=== PATIENT | male | born 1985 | race Caucasian/White ===

== ENCOUNTER 2023-01-30 09:34 | Inpatient (IN) | payer BC, SELFPAY ==
[2023-01-30] VITALS (19 sets, daily range): BP systolic 109–147; BP diastolic 64–72; PULSE 57–117; RESP 14–18; TEMP 36.8–38.1; O2SAT 95–99; BMI 25.1
--- NOTE | 2023-01-30 09:59 | ED.DENTAL ---
HPI - Dental/Oral General Chief complaint: Fever Stated complaint: swelling on right side of face Time Seen by Provider: 01/30/23 09:43 Source: patient Mode of arrival: Ambulatory History of Present Illness HPI Narrative: 37-year-old male presents for evaluation of right lower jaw pain and swelling x 3 days. Patient has had issues with this tooth in the past, he has an appointment in late February with an oral surgeon for tooth removal. He had left over 300 mg clindamycin from a previous dental infection and he has been taking 300mg Q6H for the last 2 days. This morning his jaw seemed significantly worse and he has had trouble opening his mouth and he decided to present for evaluation. Noted to be febrile and tachycardic in triage. Related Data Home Medications Medication Instructions Recorded Confirmed buprenorphine 8 mg-naloxone 2 mg 1 film buccal BID 01/30/23 01/30/23 sublingual film Allergies Allergy/AdvReac Type Severity Reaction Status Date / Time penicillin G Allergy Unknown Verified 01/30/23 09:46 Review of Systems Review of Systems Narrative: CONSTITUTIONAL- Denies: fever, chills, fatigue HEENT-reports: Dental pain, facial swelling Denies: sore throat, nosebleed, vision changes RESPIRATORY- Denies: shortness of breath, cough, wheezing CARDIAC- Denies: chest pain, edema, orthopnea GI- Denies: abdominal pain, nausea, vomiting, constipation, diarrhea - Denies: frequency, dysuria, hematuria, flank pain MSK- Denies: extremity pain, extremity swelling, joint pain, joint swelling SKIN- Denies: rash, itching, burn NEUROLOGICAL- Denies: headache, numbness, weakness, dizziness PSYCHIATRIC- Denies: anxiety, depression, suicidal ideation, homicidal ideation Patient History Social History Smoking Status: Current every day smoker Smoking Status: Current every day smoker alcohol intake frequency: 0-2 drinks per day Substance Use Type: marijuana Exam Initial Vital Signs Initial Vital Signs: Vital Signs Temperature 100.5 F H 01/30/23 09:41 Pulse Rate 111 H 01/30/23 09:41 Respiratory Rate 14 01/30/23 09:41 Blood Pressure 147/69 H 01/30/23 09:41 Pulse Oximetry 97 01/30/23 09:41 Oxygen Delivery Method Room Air 01/30/23 09:41 Const: Well-nourished, Well-developed, appears stated age Eyes: PERRL, EOMI, conjunctiva normal ENT: Poor dentition, marked mandibular facial swelling on right, mild trismus, no pooling of secretions Cardiac: regular rate, regular rhythm RESP: unlabored, clear bilaterally, no wheezing GI: Atraumatic, soft, nontender, nondistended, no rebound, no guarding MSK: Atraumatic, full range of motion, pulses equal Skin: Warm, Dry, intact, no rashes Neuro: AO x3, CN II-XII grossly intact, moves all extremities Psych: affect normal, mood normal, not suicidal, not homicidal Course Course Course Narrative: Marked facial swelling on the right-hand side from presumed dental infection. Suspect underlying abscess. Patient has mild trismus but he is able to open his mouth to show me his teeth and there is no pooling of secretions. We will give IV clindamycin, IV Toradol, will obtain CT imaging of the soft tissues to evaluate for possibility of underlying abscess. Orders Ordered: ED Orders 01/30/23 09:30 CBC Auto Diff [Complete Blood Count AUTO DIFF] Stat CMP [Comprehensive Metabolic Panel] Stat Lactate (Lactic Acid) Stat Pathologist Review (for CBC) Stat 01/30/23 10:15 CT soft tissue neck w con Stat Discontinued Medications Dexamethasone (Dexamethasone 10 Mg/Ml Vial) 10 mg IV NOW ONE Stop: 01/30/23 10:48 Last Admin: 01/30/23 10:55 Dose: 10 mg Documented By: MAN Clindamycin Phosphate (Cleocin) 900 mg in 50 mls @ 50 mls/hr IV NOW ONE Stop: 01/30/23 10:59 Last Infusion: 01/30/23 11:13 Dose: 0 mls/hr Documented By: Admin: 01/30/23 10:11 Dose: 50 mls/hr Documented By: MAN Ampicillin Sodium/Sulbactam (Sodium 3 gm/ Sodium Chloride) 100 mls @ 200 mls/hr IV NOW ONE Stop: 01/30/23 10:50 Last Infusion: 01/30/23 11:51 Dose: 0 mls/hr Documented By: Admin: 01/30/23 11:13 Dose: 200 mls/hr Documented By: MAN Ketorolac Tromethamine (Ketorolac 30 Mg/Ml Vial) 15 mg IV NOW ONE Stop: 01/30/23 10:00 Last Admin: 01/30/23 10:11 Dose: 15 mg Documented By: MAN Vital Signs Vital signs: Vital Signs - 8 hr 01/30/23 09:41 01/30/23 09:50 01/30/23 10:00 Temperature 100.5 F H Pulse Rate 111 H 117 H 99 H Respiratory Rate 14 Blood Pressure 147/69 H Pulse Oximetry 97 98 97 Oxygen Delivery Method Room Air 01/30/23 10:20 01/30/23 10:20 01/30/23 10:30 Temperature Pulse Rate 93 H 89 Respiratory Rate Blood Pressure 128/66 Pulse Oximetry 99 97 Oxygen Delivery Method 01/30/23 11:00 01/30/23 11:15 01/30/23 11:15 Temperature Pulse Rate 92 H 94 H Respiratory Rate Blood Pressure 117/67 Pulse Oximetry 97 98 Oxygen Delivery Method 01/30/23 11:30 Temperature 98.8 F Pulse Rate 87 Respiratory Rate Blood Pressure Pulse Oximetry 97 Oxygen Delivery Method Room Air MDM - Dental/Oral Lab Data 01/30/23 09:30 01/30/23 09:30 Labs: Lab Results 01/30/23 01/30/23 01/30/23 Range/Units 09:30 09:30 09:30 WBC 30.7 H* (4.5-11.0) X10^3/uL RBC 4.58 (4.5-5.9) X10^6/uL Hgb 14.0 (13.5-17.5) g/dL Hct 41.7 (41-53) % MCV 91.1 (80-100) fL MCH 30.6 (26-34) PG MCHC 33.6 (30-36) % RDW 13.5 (11.6-14.8) % Plt Count 234 (150-400) X10^3/uL Neut % (Auto) Not Reportable Lymph % (Auto) Not Reportable [place] % (Auto) Not Reportable Eos % (Auto) Not Reportable Baso % (Auto) Not Reportable Lymph # (Auto) Not Reportable [place] # (Auto) Not Reportable Baso # (Auto) Not Reportable Total Counted 100 Seg Neutrophils % 73.0 H (38-70) % Band Neutrophils % 8.0 H (3-7) % Lymphocytes % (Manual) 14.0 L (25-45) % Monocytes % (Manual) 5.0 (2-11) % Neutrophils # (Manual) 49031 H (0266-2876) /uL RBC Morphology Normal morphology Sodium 134 L (137-145) mmol/L Potassium 3.9 (3.4-5.1) mmol/L Chloride 98 (98-107) mmol/L Carbon Dioxide 30 (22-32) mmol/L BUN 4 L (9-20) mg/dL Creatinine 0.56 L (0.66-1.25) mg/dL Estimated GFR > 60 (>60) mL/min BUN/Creatinine Ratio 7.1 (6-22) Glucose 147 H (70-100) mg/dL Lactate 1.0 (0.7-2.1) mmol/L Calcium 9.3 (8.4-10.2) mg/dL Total Bilirubin 1.0 (0.2-1.3) mg/dL AST 23 (17-59) IU/L ALT 20 (<50) IU/L Alkaline Phosphatase 63 (38-126) U/L Total Protein 8.0 (6.3-8.2) g/dL Albumin 4.5 (3.5-5.0) g/dL Globulin 3.5 (1.7-4.1) g/dL Albumin/Globulin Ratio 1.3 (1.0-2.8) Urine Dip Bedside Urine Glucose Negative Bedside Urine Bilirubin - Negative Bedside Urine Ketone - Negative Urine Specific [place] 1.000 Bedside Urine Occult Blood - Negative Bedside Urine pH 7.5 Bedside Urine Protein - Negative Bedside Urine Urobilinogen - Negative Bedside Urine Nitrite - Negative Bedside Urine Leukocytes - Negative Esterase MDM Narrative Medical decision making narrative: Significant oral swelling from presumed dental infection. Already on oral antibiotics. Mild trismus, however he is tolerating secretions and maintaining airway without difficulty. CT shows significant maxillofacial tissue swelling with no drainable abscess. Periapical abscess noted. Incidental emphysematous changes seen. Patient was notified of his lab and imaging findings, we will place call to oral surgeon for additional recommendations. Case discussed with Dr. Jensen of oral surgery. Snuff Container Inspector recommends admission for IV antibiotics and he can see the patient in the hospital tomorrow. Specifically requested Unasyn. Recommended adding Decadron as well to help with the swelling. Patient lists an allergy to penicillin, however he states it when he was a kid his reaction was dry heaving. Likely not true reaction. We will give Unasyn and will monitor. Patient is agreeable to admission at this time. Discharge Plan Departure Patient Disposition: Admitted as Observation Clinical Impression: Abscess, dental
[2023-01-30] MEDS: CLINDAMYCIN 900 MG/50 ML PIGGYBACK 50 MG IV (10:11)
[2023-01-30] MEDS: KETOROLAC 30 MG/ML VIAL 15 MG IV (10:11)
--- NOTE | 2023-01-30 10:15 | DI.CT.S_ITS ---
PROCEDURE: CT SOFT TISSUE NECK W CON INDICATIONS: RIGHT FACIAL SWELLING/SUSPECT DENTAL ABSCESS TECHNIQUE: After the administration of intravenous contrast, 3.0 mm axial sections acquired from the sella to the aortic arch. Additional oblique axial 3.0 mm sections acquired through the pharynx. 3 mm thick coronal and sagittal reformats were generated. For radiation dose reduction, the following was used: automated exposure control. COMPARISON: None. FINDINGS: Image quality: Excellent. Lymph nodes: There is an enlarged right submandibular lymph node seen, as on series 2, image 50, measuring 10 x 17 mm. Borderline prominent lymph nodes are seen elsewhere. Vessels: Visualized vasculature appears patent. Neck spaces: Generalized superficial soft tissue swelling can be seen involving the right cheek. No soft tissue abscess is seen. Generalized swelling the tonsils as well as the lymph tissue at the tongue base can be seen (right worse than left). No masses are seen. Glands: The parotid and submandibular glands appear normal. Thyroid gland demonstrates no significant abnormality. Miscellaneous: Visualized brain and orbits appear normal. Mild emphysematous changes can be seen at the lung apices, with mild subpleural bleb formation. Superficial soft tissues appear normal. Bones: The most posterior right mandibular molar is abnormal, with a large sebastian seen, as on series 4, image 26. There is periapical lucency seen, as on series 4, image 24. No suspicious bony lesions. Visualized sinuses and mastoids appear unremarkable. IMPRESSION: Generalized soft tissue swelling seen of the right cheek, yet without a drainable soft tissue abscess. The right most posterior mandibular molar is abnormal, with a large sebastian as well as a periapical abscess adjacent to the root. Please correlate with dental examination. Enlarged lymph nodes are seen. Generalized soft tissue swelling can be seen of the tonsils as well as the lymph tissue at the tongue base (right more than left). Additional findings: Emphysematous changes Dictated by: Baldo Colbert M.D. on 01/30/2023 at 9:22 Approved by: Baldo Colbert M.D. on 01/30/2023 at 9:26
[2023-01-30 10:19] LABS: Hematocrit 41.7 % (41-53); Mean Corpuscular HGB Conc 33.6 % (30-36); Mean Corpuscular Hemoglobin 30.6 PG (26-34); Mean Corpuscular Volume 91.1 fL (80-100); Platelet Count 234 X10^3/uL (150-400); Red Blood Cell Count 4.58 X10^6/uL (4.5-5.9); Red Cell Distribution Width 13.5 % (11.6-14.8)
[2023-01-30 10:21] LABS: Alanine Aminotransferase 20 IU/L (<50); Albumin 4.5 g/dL (3.5-5.0); Albumin Globulin Ratio 1.3 (1.0-2.8); Alkaline Phosphatase 63 U/L (38-126); Aspartate Aminotransferase 23 IU/L (17-59); BUN Creatinine Ratio 7.1 (6-22); Blood Urea Nitrogen 4 mg/dL (9-20); Calcium 9.3 mg/dL (8.4-10.2); Carbon Dioxide 30 mmol/L (22-32); Chloride 98 mmol/L (98-107); Estimated Glomerular Filt Rate > 60 mL/min (>60); Globulin 3.5 g/dL (1.7-4.1); Glucose 147 mg/dL (70-100); HEMOLYSIS < 15 (0-50); Potassium 3.9 mmol/L (3.4-5.1); Sodium 134 mmol/L (137-145)
[2023-01-30 10:25] LABS: Add Manual Diff / Slide Review YES; White Blood Cell Count 30.7 X10^3/uL (4.5-11.0)
[2023-01-30 10:37] LABS: Neutrophils Absolute Manual 24867 /uL (3000-5900); Total Cells Counted 100
[2023-01-30 10:38] LABS: RBC Morphology Normal Morphology
[2023-01-30] MEDS: DEXAMETHASONE 10 MG/ML VIAL IV (10:55)
[2023-01-30] MEDS: AMPICILLIN/SULBACTAM 3 GM 3 GM in SODIUM CHLORIDE 0.9% 100 ML IV ×3 (11:13→22:44)
--- NOTE | 2023-01-30 11:18 | PC.NURSE ---
pt given call light. instructed to use the call light if he felt any sx associated with allergic reaction. provided education to pt regarding possible sx of allergic reaction and pt verbalized understanding of the teaching.
[2023-01-30] MEDS: ACETAMINOPHEN 325 MG TABLET 650 MG PO ×2 (13:58→21:31)
[2023-01-30] MEDS: VANCOMYCIN 1,250 MG/250 ML PIGGYBACK 250 MG IV ×2 (14:31→21:30)
[2023-01-30] MEDS: KETOROLAC 30 MG/ML VIAL IV ×2 (14:31→20:14)
--- NOTE | 2023-01-30 19:08 | P.HP_ITS ---
History of Present Illness History of Present Illness Date Patient Seen: 01/30/23 Time Patient Seen: 13:00 Chief complaint: swelling on right side of face Narrative: Mr. Wyatt is a 37M with no significant medical history who presents with facial pain and swelling. He has had issues with a tooth in right lower jaw for quite some time, but within the last month it has gotten worse and he has seen a oral surgeon who recommended removal. Over the last few days he developed jaw pain, swelling, fevers. He could not fully open his mouth this morning. He had pain with swallowing. No dysphagia, no shortness of breath. In the ED workup was done, he was noted to be febrile to 100.5, tachy in 110s. Labs reviewed and notable for WBC 30.7, hgb 14.0, plts 234. Na 134, creatinine 0.56. Lactate 1.0. UA negative. CT shows maxillofacial swelling, he has no abscess in his cheek or neck, but he does have one periapically near his tooth. He was ordered for antibiotics. Per ED physician the case was discussed with Dr. Jensen who will come in to see the patient tomorrow. [facility] Social History household members: significant other Smoking Status: Current some day smoker alcohol intake: former Meds Home Medications and Allergies Home Medications Medication Instructions Recorded Confirmed Type buprenorphine 8 mg-naloxone 2 mg 1 film buccal BID 01/30/23 01/30/23 History sublingual film Allergies Allergy/AdvReac Type Severity Reaction Status Date / Time penicillin G Allergy Unknown Verified 01/30/23 09:46 Review of Systems Review of Systems Narrative: 14 systems reviewed and negative aside from what is noted in HPI Exam Vital Signs (past 8 hours): - 01/30/23 11:15 01/30/23 11:15 01/30/23 11:30 Temperature 98.8 F Pulse Rate 94 H 87 Respiratory Rate Blood Pressure 117/67 Pulse Oximetry 98 97 Oxygen Delivery Method Room Air Oxygen Flow Rate 01/30/23 11:45 01/30/23 12:00 01/30/23 12:15 Temperature Pulse Rate 79 82 82 Respiratory Rate Blood Pressure Pulse Oximetry 96 96 96 Oxygen Delivery Method Oxygen Flow Rate 01/30/23 12:30 01/30/23 12:45 01/30/23 12:59 Temperature Pulse Rate 78 79 Respiratory Rate Blood Pressure 109/65 Pulse Oximetry 96 95 Oxygen Delivery Method Oxygen Flow Rate 01/30/23 12:59 01/30/23 13:00 01/30/23 13:12 Temperature Pulse Rate 95 H 93 H Respiratory Rate Blood Pressure 112/67 Pulse Oximetry 96 97 Oxygen Delivery Method Oxygen Flow Rate 01/30/23 13:12 01/30/23 13:30 01/30/23 18:00 Temperature 98.9 F 98.7 F Pulse Rate 86 84 65 Respiratory Rate 14 16 18 Blood Pressure 127/64 111/72 Pulse Oximetry 97 97 97 Oxygen Delivery Method Room Air Oxygen Flow Rate 0 0 Oxygen Delivery Method Room Air Oxygen Flow Rate 0 Narrative Exam Narrative: GEN: no acute distress HEENT: right side of face and neck swollen, painful to touch, mouth difficult to open, but poor dentition noted in right lower molar CV: regular rate and rhythm PULM: clear bilaterally ABD: soft, nontender, nondistended, no organomegaly EXT: warm and well perfused with no edema Objective Labs 01/30/23 09:30 01/30/23 09:30 Labs: Laboratory Results - last 24 hr 01/30/23 01/30/23 01/30/23 09:30 09:30 09:30 WBC 30.7 H* RBC 4.58 Hgb 14.0 Hct 41.7 MCV 91.1 MCH 30.6 MCHC 33.6 RDW 13.5 Plt Count 234 Neut % (Auto) Not Reportable Lymph % (Auto) Not Reportable [place] % (Auto) Not Reportable Eos % (Auto) Not Reportable Baso % (Auto) Not Reportable Lymph # (Auto) Not Reportable [place] # (Auto) Not Reportable Baso # (Auto) Not Reportable Total Counted 100 Seg Neutrophils % 73.0 H Band Neutrophils % 8.0 H Lymphocytes % (Manual) 14.0 L Monocytes % (Manual) 5.0 Neutrophils # (Manual) 95902 H RBC Morphology Normal morphology Sodium 134 L Potassium 3.9 Chloride 98 Carbon Dioxide 30 BUN 4 L Creatinine 0.56 L Estimated GFR > 60 BUN/Creatinine Ratio 7.1 Glucose 147 H Lactate 1.0 Calcium 9.3 Total Bilirubin 1.0 AST 23 ALT 20 Alkaline Phosphatase 63 Total Protein 8.0 Albumin 4.5 Globulin 3.5 Albumin/Globulin Ratio 1.3 Assessment & Plan Assessment & Plan narrative: 1. Dental abscess with facial cellulitis -SIRS positive with elevated WBC and tachycardia, fevers -ordered for IV antibiotics -oral surgeon consulted by ED for management of tooth and abscess -no evidence of dysphagia or respiratory distress, continue to monitor closely 2. Opiate use disorder -continue suboxone I have discussed plan and obtained history from the patient. I have discussed plan of care with ED physician and bedside nurse. I have reviewed labs, imaging. CODE: Full Proxy: Gwendolyn Yoselin, Quality [facility] - Meds 'Current medications' to include all prescriptions, acnt-kyy-qeubyee products, h erbals, cannabis/cannabidiol products, and vitamin/mineral/dietary (nutritional) supplements. I have utilized all available resources to obtain, update, or review the patient?s current medications. [If Yes, STOP here]: Yes
[2023-01-30] MEDS: BUPRENORPHINE SL (20:20)
[2023-01-30] MEDS: NALOXONE SL (20:20)
[2023-01-31 00:20] VITALS: BP 109/70; PULSE 46; RESP 16; TEMP 36.1; O2SAT 96
[2023-01-31] MEDS: KETOROLAC 30 MG/ML VIAL IV ×4 (02:05→20:19)
[2023-01-31] MEDS: AMPICILLIN/SULBACTAM 3 GM 3 GM in SODIUM CHLORIDE 0.9% 100 ML IV ×4 (04:41→22:49)
[2023-01-31] MEDS: ACETAMINOPHEN 325 MG TABLET 650 MG PO ×2 (04:41→17:53)
[2023-01-31 05:05] VITALS: BP 101/61; PULSE 49; RESP 16; TEMP 36.6; O2SAT 98
[2023-01-31] MEDS: VANCOMYCIN 1,250 MG/250 ML PIGGYBACK 250 MG IV (05:36)
[2023-01-31 06:04] LABS: Hematocrit 39.5 % (41-53); Hemoglobin 13.2 g/dL (13.5-17.5); Mean Corpuscular HGB Conc 33.4 % (30-36); Mean Corpuscular Hemoglobin 30.3 PG (26-34); Mean Corpuscular Volume 90.7 fL (80-100); Platelet Count 211 X10^3/uL (150-400); Red Blood Cell Count 4.36 X10^6/uL (4.5-5.9); Red Cell Distribution Width 13.4 % (11.6-14.8); White Blood Cell Count 26.5 X10^3/uL (4.5-11.0)
[2023-01-31 06:08] LABS: Add Manual Diff / Slide Review YES
[2023-01-31 06:10] LABS: BUN Creatinine Ratio 23.1 (6-22); Blood Urea Nitrogen 12 mg/dL (9-20); Carbon Dioxide 27 mmol/L (22-32); Chloride 100 mmol/L (98-107); Estimated Glomerular Filt Rate > 60 mL/min (>60); Glucose 120 mg/dL (70-100); HEMOLYSIS < 15 (0-50); Potassium 3.9 mmol/L (3.4-5.1); Sodium 135 mmol/L (137-145)
[2023-01-31 06:35] LABS: Neutrophils Absolute Manual 21730 /uL (3000-5900); RBC Morphology Normal Morphology; Total Cells Counted 100
[2023-01-31 08:55] VITALS: BP 102/64; PULSE 59; RESP 18; TEMP 36.9; O2SAT 97
--- NOTE | 2023-01-31 09:19 | PC.NURSE ---
Checked on patient and he was resting, will give all medications at 0900ish.
[2023-01-31] MEDS: BUPRENORPHINE SL ×2 (09:28→20:24)
[2023-01-31] MEDS: NALOXONE SL ×2 (09:28→20:24)
[2023-01-31] MEDS: HEPARIN 5,000 UNIT/ML VIAL 5000 UNIT SUBCUT ×2 (09:29→20:18)
--- NOTE | 2023-01-31 09:29 | CM.DANOTE ---
DCP: Chart review for case, met with patient at bedside, they agree to case management assessment. Completed DCP assessment based on information available. Patient is a 37 year old patient admitted for facial swelling. States tried PO ABX without relief. Supportive family ( and baby daughter) at bedside. PCP: None, agrees to look up local providers via his insurance. Payer: [employer] DME: None DCP: Home with supportive family. CM team following for any possible support services. Samina Carballo RN, CM Discharge Planning/Care Management CM Discharge Assessment Start: 01/31/23 09:28 Freq: Status: Active Protocol: Document 01/31/23 09:28 BQ (Rec: 01/31/23 09:29 BQ [id number]) Discharge Planning Assessment Assigned Extrusion Technician Samina Carballo RN, CM Advance Directives? No History Provided By Patient Has Patient been admitted in last 30 No days? Prior Living Arrangements House Household Members significant other Type of transporation used prior to Drives own vehicle admit Independent with ADL's Yes Is patient alert and oriented? Yes Caregiver for Another Yes Barriers to Discharge No Discharge Plan Home Referrals Initiated None needed Whiteboard Updated in Patient Room with Yes name and ext. # of Extrusion Technician Review Status In Process Next Review Type Continued Stay Review
--- NOTE | 2023-01-31 09:50 | PC.NURSE ---
Patient is alert and oriented x4, he has is spouse and baby girl visiting in the room now. Given suboxone, iv toradol, and sq heparin. Patient tolerated this all well. He has significant swelling to his r.side of his mouth from dental abcess. should be coming to see the patient later this afternoon. Patient has a hx of opiate use.
[2023-01-31] MEDS: SODIUM CHLORIDE 0.9% FLUSH 10 ML IV ×3 (11:30→22:50)
[2023-01-31 14:28] LABS: Vancomycin Trough 9.4 ug/mL (10-20)
[2023-01-31] MEDS: VANCOMYCIN 1,500 MG/300 ML PIGGYBACK 200 MG IV (14:43)
--- NOTE | 2023-01-31 15:48 | PM.PN.1 ---
Subjective Subjective Date Patient Seen: 01/31/23 Time Patient Seen: 08:00 Interval history: He feels his pain is improving, and his swelling is quite significant but starting to improve. He can not open his mouth fully and can not eat due to this. Exam Vital Signs (past 8 hours): - 01/31/23 08:55 Temperature 98.4 F Pulse Rate 59 L Respiratory Rate 18 Blood Pressure 102/64 Pulse Oximetry 97 Oxygen Flow Rate 0 Oxygen Delivery Method Room Air Oxygen Flow Rate 0 Narrative Exam Narrative: GEN: no acute distress HEENT: right side of face and neck swollen, painful to touch, mouth difficult to open, but poor dentition noted in right lower molar CV: regular rate and rhythm PULM: clear bilaterally ABD: soft, nontender, nondistended, no organomegaly EXT: warm and well perfused with no edema Objective Labs 01/31/23 05:25 01/31/23 05:25 Labs: Laboratory Results - last 24 hr 01/31/23 01/31/23 01/31/23 05:25 05:25 13:30 WBC 26.5 H RBC 4.36 L Hgb 13.2 L Hct 39.5 L MCV 90.7 MCH 30.3 MCHC 33.4 RDW 13.4 Plt Count 211 Neut % (Auto) Not Reportable Lymph % (Auto) Not Reportable [place] % (Auto) Not Reportable Eos % (Auto) Not Reportable Baso % (Auto) Not Reportable Lymph # (Auto) Not Reportable [place] # (Auto) Not Reportable Baso # (Auto) Not Reportable Total Counted 100 Seg Neutrophils % 79.0 H Band Neutrophils % 3.0 Lymphocytes % (Manual) 11.0 L Monocytes % (Manual) 6.0 Metamyelocytes % 1.0 H Neutrophils # (Manual) 95227 H RBC Morphology Normal morphology Sodium 135 L Potassium 3.9 Chloride 100 Carbon Dioxide 27 BUN 12 Creatinine 0.52 L Estimated GFR > 60 BUN/Creatinine Ratio 23.1 H Glucose 120 H Calcium 9.0 Vancomycin Trough 9.4 L PFSH Social History household members: significant other Smoking Status: Current some day smoker alcohol intake: former Assessment & Plan Assessment & Plan narrative: 1. Dental abscess with facial cellulitis -SIRS positive with elevated WBC and tachycardia, fevers -ordered for IV antibiotics -oral surgeon consulted by ED for management of tooth and abscess, plan to evaluate in hospital -no evidence of dysphagia or respiratory distress, continue to monitor closely -he continues to have quite elevated WBC at 26.5 and can not eat due to significant swelling causing inability to open mouth, he will remain on IV antibiotics 2. Opiate use disorder -continue suboxone I have discussed plan and obtained history from the patient. I have discussed plan of care with ED physician and bedside nurse. I have reviewed labs, imaging. CODE: Full Proxy: Gwendolyn Wyatt,
[2023-01-31 20:38] VITALS: BP 118/71; PULSE 57; RESP 20; TEMP 36.4; O2SAT 97
[2023-02-01] MEDS: ACETAMINOPHEN 325 MG TABLET 650 MG PO ×2 (00:06→07:37)
[2023-02-01] MEDS: KETOROLAC 30 MG/ML VIAL IV ×2 (01:40→08:47)
[2023-02-01] MEDS: AMPICILLIN/SULBACTAM 3 GM 3 GM in SODIUM CHLORIDE 0.9% 100 ML IV (04:26)
[2023-02-01] MEDS: SODIUM CHLORIDE 0.9% FLUSH 10 ML IV (04:27)
[2023-02-01 05:58] LABS: Hematocrit 32.6 % (41-53); Mean Corpuscular HGB Conc 33.8 % (30-36); Mean Corpuscular Hemoglobin 30.5 PG (26-34); Mean Corpuscular Volume 90.3 fL (80-100); Platelet Count 203 X10^3/uL (150-400); Red Blood Cell Count 3.61 X10^6/uL (4.5-5.9); Red Cell Distribution Width 13.3 % (11.6-14.8); White Blood Cell Count 17.7 X10^3/uL (4.5-11.0)
[2023-02-01 08:09] VITALS: BP 124/76; PULSE 59; RESP 18; TEMP 36.6; O2SAT 98
[2023-02-01] MEDS: NALOXONE SL (08:47)
[2023-02-01] MEDS: BUPRENORPHINE SL (08:47)
--- NOTE | 2023-02-01 09:06 | PC.NURSE ---
Patient given tylenol and toradol for his r.lower tooth abcess (lower molar). He has showered and eaten some breakfast. oral surgeon by this morning to check on patient. He will have his tooth extracted, unsure of date. in visiting patient and he is comfortable.
--- NOTE | 2023-02-01 10:24 | P.DS_ITS ---
History of Present Illness History of Present Illness Date Patient Seen: 02/01/23 Time Patient Seen: 10:24 Chief complaint: swelling on right side of face Narrative: Mr. Wyatt is a 37M with no significant medical history who presents with facial pain and swelling. He has had issues with a tooth in right lower jaw for quite some time, but within the last month it has gotten worse and he has seen a oral surgeon who recommended removal. Over the last few days he developed jaw pain, swelling, fevers. He could not fully open his mouth this morning. He had pain wi th swallowing. No dysphagia, no shortness of breath. In the ED workup was done, he was noted to be febrile to 100.5, tachy in 110s. Labs reviewed and notable for WBC 30.7, hgb 14.0, plts 234. Na 134, creatinine 0.56. Lactate 1.0. UA negative. CT shows maxillofacial swelling, he has no abscess in his cheek or neck, but he does have one periapically near his tooth. He was ordered for antibiotics. Per ED physician the case was discussed with Dr. Jensen who will come in to see the patient tomorrow. Discharge Providers Provider Date of admission: 01/30/23 13:04 Discharge Date: 02/01/23 Primary care physician: Doctor Dilip MD Consults: 01/31/23 07:56 Consult to Physician Routine Comment: Consulting Provider: Victor Manuel Jensen Reason for consultation: dental abscess Has provider been notified: Yes Discharge provider: Kane Escalante DO Summary Hospital Course Discharge Diagnosis: 1. Dental abscess with facial cellulitis 2. Opiate use disorder Hospital Course: 37 M with opiate use disorder who was admitted with a R dental abscess with faci al cellulitis. Dr. Jensen consulted on patient and followed along. His symptoms continued to improve with antibiotics to the point of being able to tolerate adequate oral intake. Dr. Jensen will evaluate the patient in clinic in the coming days, and for now recommended continuation with augmentin at the time of discharge. He did not want opiate pain medications, and had control of symptoms with ketorolac which was sent to his pharmacy along with his antibiotic. Time Spent with Patient Time spent: Less than 30 minutes Exam Vital Signs (past 8 hours): - 02/01/23 08:09 Temperature 98 F Pulse Rate 59 L Respiratory Rate 18 Blood Pressure 124/76 Pulse Oximetry 98 Oxygen Flow Rate 0 Oxygen Delivery Method Room Air Oxygen Flow Rate 0 Narrative Exam Narrative: GEN: no acute distress HEENT: right side of face and neck swollen, painful to touch, mouth difficult to open, but poor dentition noted in right lower molar CV: regular rate and rhythm PULM: clear bilaterally ABD: soft, nontender, nondistended, no organomegaly EXT: warm and well perfused with no edema Objective Labs 02/01/23 05:15 01/31/23 05:25 Labs: Laboratory Results - last 24 hr 01/31/23 02/01/23 13:30 05:15 WBC 17.7 H RBC 3.61 L Hgb 11.0 L Hct 32.6 L MCV 90.3 MCH 30.5 MCHC 33.8 RDW 13.3 Plt Count 203 Vancomycin Trough 9.4 L PFSH Social History household members: significant other Smoking Status: Current some day smoker alcohol intake: former Discharge Plan Discharge Plan Patient Disposition: Home Provider Discharge Comment: You were admitted to the hospital with a dental abscess. Improved with antibiotics. Please follow up with Dr. Jensen for further management. Discharge orders & Medications Prescriptions: New amoxicillin-pot clavulanate 875-125 mg tablet 1 tab PO BID 10 Days Qty: 20 0RF ketorolac 10 mg tablet 10 mg PO Q6H 7 Days Qty: 28 0RF Continued buprenorphine-naloxone 8-2 mg film 1 film buccal BID Follow up/Referrals: Dilip,, [Primary Care Provider] - Diet/Activity/Treatments Diet: Diet as Tolerated and Regular Activity: As tolerated Visit Report/Discharge Packet Instructions: Tooth Abscess, DI for Tooth Abscess, DI for Tooth Extraction Stand Alone Forms: Patient Portal/API, Stroke Signs & Symptoms Discharge Data Primary Care Provider: DilipDoctor Discharges patient from system. Discharge Date/Time: 02/01/23 11:15
--- NOTE | 2023-02-01 12:48 | CM.DPC ---
DCP Discharge Home Per MD, pt was seen bedside by Oral Surgeon Dr. Jensen and stable for discharge with outpt follow up. Per RN, pt was given oral meds and showered and given d/c instructions and spouse bedside, no concerns noted with discharge. Plan: Patient to d/c home today with outpt f/u with Dr. Jensen for tooth extraction and spouse to transport home and no further SW needs at this time. NICKOLAS Ferraro
== END 2023-02-01 11:15 | disposition home or self-care (01) | DRG 158 ==
LOC: ED 11:43 → AC 13:26
PROVIDERS: Admitting Provider Internal Medicine; Emergency Provider Emergency Medicine; Referring Provider Emergency Medicine; Visit Provider Internal Medicine
DX: K04.7 Periapical abscess without sinus (principal); L03.211 Cellulitis of face; F11.90 Opioid use, unspecified, uncomplicated
CPT/HCPCS: 36415; 70491; 80048; 80053; 80202; 81003; 83605; 85007; 85025; 85027; 96365; 96367; 96375; 99284; J0295; J1100; J1644; J1885; Q9967

== ENCOUNTER → 2023-11-21 07:15 | Outpatient (CLI) | payer BC, SELFPAY ==
[2023-01-30 14:38] VITALS: BMI 25.1
[2023-11-21 08:06] LABS: Add Manual Diff / Slide Review NO; Basophils Absolute Auto 100 /uL (0-100); Basophils Percent Auto 0.6 % (0-2); Eosinophils Absolute Auto 700 /uL (0-450); Hematocrit 45.2 % (41-53); Lymphocytes Absolute Auto 5500 /uL (1100-4500); Mean Corpuscular HGB Conc 33.2 % (30-36); Mean Corpuscular Hemoglobin 29.8 PG (26-34); Mean Corpuscular Volume 89.9 fL (80-100); Monocytes Absolute Auto 1600 /uL (0-900); Monocytes Percent Auto 8.7 % (3-14); Neutrophils Absolute Auto 9900 /uL (1500-7000); Neutrophils Percent Auto 55.7 % (50-75); Platelet Count 222 X10^3/uL (150-400); Red Blood Cell Count 5.03 X10^6/uL (4.5-5.9); Red Cell Distribution Width 13.5 % (11.6-14.8); White Blood Cell Count 17.8 X10^3/uL (4.5-11.0)
[2023-11-21 08:31] LABS: Alanine Aminotransferase 30 IU/L (<50); Albumin 4.5 g/dL (3.5-5.0); Albumin Globulin Ratio 1.5 (1.0-2.8); Alkaline Phosphatase 50 U/L (38-126); Aspartate Aminotransferase 29 IU/L (17-59); BUN Creatinine Ratio 22.4 (6-22); Bilirubin Total 0.7 mg/dL (0.2-1.3); Blood Urea Nitrogen 15 mg/dL (9-20); Calcium 9.1 mg/dL (8.4-10.2); Carbon Dioxide 27 mmol/L (22-32); Chloride 104 mmol/L (98-107); Cholesterol 152 mg/dL (140-199); Estimated Glomerular Filt Rate > 60 mL/min (>60); Glucose 105 mg/dL (70-100); HDL Cholesterol 52 mg/dL (40-60); HEMOLYSIS < 15 (0-50); LDL Cholesterol Calculated 78 mg/dL (<100); Potassium 4.5 mmol/L (3.4-5.1); Sodium 139 mmol/L (137-145); Total Protein 7.5 g/dL (6.3-8.2); Triglycerides 108 mg/dL (35-150)
[2023-11-21 08:44] LABS: LDL Cholesterol Direct 74 mg/dL (<100)
[2023-11-21 09:13] LABS: Vitamin B12 464 pg/mL (239-931)
== END ==
PROVIDERS: PCP Family Medicine; Referring Provider Family Medicine; Visit Provider Family Medicine
DX: Z13.21 Encounter for screening for nutritional disorder (principal); Z13.9 Encounter for screening, unspecified; Z13.220 Encounter for screening for lipoid disorders; R20.0 Anesthesia of skin; R20.2 Paresthesia of skin; M25.512 Pain in left shoulder
CPT/HCPCS: 36415; 80053; 80061; 82306; 82607; 83721; 85025

== ENCOUNTER → 2025-05-17 07:46 | Outpatient (CLI) | payer OTHER, SELFPAY ==
[2023-01-30 14:38] VITALS: BMI 25.1
[2025-05-17 08:17] LABS: Hematocrit 44.2 % (41-53); Hemoglobin 15.1 g/dL (13.5-17.5); Hemoglobin A1C% w Est Avg Glu 5.2 % (4.0-6.0); Mean Corpuscular HGB Conc 34.2 % (30-36); Mean Corpuscular Hemoglobin 29.9 PG (26-34); Mean Corpuscular Volume 87.4 fL (80-100); Platelet Count 241 X10^3/uL (150-400)
[2025-05-17 08:23] LABS: Alanine Aminotransferase 47 IU/L (<50); Albumin 4.6 g/dL (3.5-5.0); Albumin Globulin Ratio 1.5 (1.0-2.8); Alkaline Phosphatase 44 U/L (38-126); Blood Urea Nitrogen 16 mg/dL (9-20); Calcium 9.6 mg/dL (8.4-10.2); Carbon Dioxide 29 mmol/L (22-32); Chloride 102 mmol/L (98-107); Cholesterol 163 mg/dL (140-199); Estimated Glomerular Filt Rate > 60 mL/min (>60); Globulin 3.0 g/dL (1.7-4.1); Glucose 116 mg/dL (70-99); HDL Cholesterol 49 mg/dL (40-60); HEMOLYSIS < 15 (0-50); Potassium 4.1 mmol/L (3.4-5.1); Sodium 140 mmol/L (137-145); Total Protein 7.6 g/dL (6.3-8.2); Triglycerides 117 mg/dL (35-150)
[2025-05-17 08:40] LABS: Vitamin D 25 Hydroxy (D3) 34.4 ng/mL (30.0-100.0)
[2025-05-17 09:28] LABS: HIV 1 & 2 Ab/Ag 4th Gen Combo NEGATIVE (NEGATIVE); Hep C Virus Ab w/Reflex Quant NEGATIVE s/c (NEGATIVE)
== END ==
PROVIDERS: PCP Family Medicine; Referring Provider Family Medicine; Visit Provider Family Medicine
DX: Z00.00 Encounter for general adult medical examination without abnormal findings (principal)
CPT/HCPCS: 36415; 80053; 80061; 82306; 83036; 85027; 86803; 87389